=== PATIENT | female | born 1960 | race Caucasian/White ===

== ENCOUNTER 2017-03-01 14:29 | Emergency (ER) | payer SELFPAY ==
[~2017-03-01] VITALS: Ht 172.7 cm; Wt 117.9 kg
[2017-03-01] MEDS ORDERED: IV NORMAL SALINE 1000ML BAG 1,000 ML IV ONE (14:45)
[2017-03-01] MEDS ORDERED: MORPHINE SULFATE 10 MG/ML VIAL. IV ONE (14:45)
[2017-03-01] MEDS ORDERED: ONDANSETRON PF 4 MG/2 ML VIAL. IV ONE (14:45)
--- NOTE | 2017-03-01 14:49 | PHYS DOC ---
Adult General Chief Complaint Chief Complaint: ABDOMINAL PAIN HPI HPI Patient is a 56 year old female presenting to the emergency department for evaluation of abdominal pain and nausea that has been going on for at least several weeks. She went to The emergency department in [place] and says her primary complaint was not addressed and sent home with a Z-Darvin. She then saw her primary care provider and had labs drawn and was started on protonic's but she says this has not helped the pain. Is in her right upper quadrant and epigastrium and sharp and she feels nauseated all the time and has not been eating or drinking much and she says surprisingly that she has not lost weight. Patient says that she has had her gallbladder evaluated before and that it does have stones present. Patient denies any fevers chills dysuria hematuria diarrhea or constipation. She says that she has fibromyalgia and chronic Lyme' s disease. Review of Systems Review of Systems Constitutional: Denies fever or chills [] Eyes: Denies change in visual acuity, redness, or eye pain [] HENT: Denies nasal congestion or sore throat [] Respiratory: Denies cough or shortness of breath [] Cardiovascular: No additional information not addressed in HPI [] GI: + abdominal pain, nausea. No vomiting, bloody stools or diarrhea [] : Denies dysuria or hematuria [] Musculoskeletal: Denies back pain or joint pain [] Integument: Denies rash or skin lesions [] Neurologic: Denies headache, focal weakness or sensory changes [] Current Medications Current Medications Current Medications Medications (Trade) Dose Ordered Sig/Lazaro Start Time Stop Time Status Last Admin Dose Admin Fentanyl Citrate (Fentanyl 2ml Vial) 75 mcg 1X ONCE 03/01/17 15:15 03/01/17 15:16 DC 03/01/17 15:31 75 MCG Morphine Sulfate 5 mg 1X ONCE 03/01/17 14:45 03/01/17 15:04 DC Ondansetron HCl (Zofran) 8 mg 1X ONCE 03/01/17 14:45 03/01/17 14:54 DC 03/01/17 15:29 8 MG Sodium Chloride 1,000 ml @ 1,000 mls/hr 1X ONCE 03/01/17 14:45 03/01/17 15:44 DC 03/01/17 15:29 1,000 MLS/HR Allergies Allergies Allergies Coded Allergies Type Severity Reaction Last Updated Verified amoxicillin Allergy Intermediate 03/01/17 Yes ciprofloxacin Allergy Intermediate 03/01/17 Yes clavulanic acid Allergy Intermediate 03/01/17 Yes hydromorphone Allergy Intermediate 03/01/17 Yes morphine Allergy Intermediate 03/01/17 Yes nitrofurantoin Allergy Intermediate 03/01/17 Yes tetanus immune globulin Allergy Intermediate 03/01/17 Yes Physical Exam Physical Exam Constitutional: Well developed, well nourished, no acute distress, non-toxic appearance. [] HENT: Normocephalic, atraumatic, bilateral external ears normal, oropharynx moist, no oral exudates, nose normal. [] Eyes: PERRLA, EOMI, conjunctiva normal, no discharge. [] Neck: Normal range of motion, no tenderness, supple, no stridor. [] Cardiovascular:Heart rate regular rhythm, no murmur [] Lungs & Thorax: Bilateral breath sounds clear to auscultation [] Abdomen: Bowel sounds normal, soft, + RUQ and epigastric tenderness, no rebound or guarding, no masses, no pulsatile masses. [] Skin: Warm, dry, no erythema, no rash. [] Back: No tenderness, no CVA tenderness. [] Extremities: No tenderness, no cyanosis, no clubbing, ROM intact, no edema. [] Neurologic: Alert and oriented X 3, normal motor function, normal sensory function, no focal deficits noted. [] Current Patient Data Vital Signs Vital Signs Date Time Temp Pulse Resp B/P (MAP) Pulse Ox O2 Delivery O2 Flow Rate FiO2 03/01/17 16:30 64 14 167/56 (93) 99 Room Air 03/01/17 14:35 98.2 98.2 Lab Values Laboratory Tests Test 03/01/17 14:35 03/01/17 15:20 Urine Collection Type Void Urine Color Yellow Urine Clarity Clear Urine pH 7.5 Urine Specific [place] <=1.005 Urine Protein Negative mg/dL (NEG-TRACE) Urine Glucose (UA) Negative mg/dL (NEG) Urine Ketones (Stick) Negative mg/dL (NEG) Urine Blood Small (NEG) Urine Nitrite Negative (NEG) Urine Bilirubin Negative (NEG) Urine Urobilinogen Dipstick 0.2 mg/dL (0.2 mg/dL) Urine Leukocyte Esterase Negative (NEG) Urine RBC 6-10 /HPF (0-2) Urine WBC Rare /HPF (0-4) Urine Squamous Epithelial Cells Occ /LPF Urine Bacteria Few /HPF (0-FEW) Urine Opiates Screen Neg (NEG) Urine Methadone Screen Neg (NEG) Urine Barbiturates Neg (NEG) Urine Phencyclidine Screen Neg (NEG) Urine Amphetamine/Methamphetamine Neg (NEG) Urine Benzodiazepines Screen Neg (NEG) Urine Cocaine Screen Neg (NEG) Urine Cannabinoids Screen Neg (NEG) Urine Ethyl Alcohol Neg (NEG) White Blood Count 9.1 x10^3/uL (4.0-11.0) Red Blood Count 5.44 x10^6/uL (3.50-5.40) H Hemoglobin 14.9 g/dL (12.0-15.5) Hematocrit 44.9 % (36.0-47.0) Mean Corpuscular Volume 83 fL (79-100) Mean Corpuscular Hemoglobin 27 pg (25-35) Mean Corpuscular Hemoglobin Concent 33 g/dL (31-37) Red Cell Distribution Width 13.7 % (11.5-14.5) Platelet Count 293 x10^3/uL (140-400) Neutrophils (%) (Auto) 66 % (31-73) Lymphocytes (%) (Auto) 27 % (24-48) Monocytes (%) (Auto) 5 % (0-9) Eosinophils (%) (Auto) 1 % (0-3) Basophils (%) (Auto) 1 % (0-3) Neutrophils # (Auto) 6.0 x10^3uL (1.8-7.7) Lymphocytes # (Auto) 2.4 x10^3/uL (1.0-4.8) Monocytes # (Auto) 0.5 x10^3/uL (0.0-1.1) Eosinophils # (Auto) 0.1 x10^3/uL (0.0-0.7) Basophils # (Auto) 0.1 x10^3/uL (0.0-0.2) Prothrombin Time 13.4 SEC (11.7-14.0) Prothrombin Time INR 1.1 (0.8-1.1) PTT 27 SEC (24-38) Sodium Level 141 mmol/L (136-145) Potassium Level 3.8 mmol/L (3.5-5.1) Chloride Level 104 mmol/L (98-107) Carbon Dioxide Level 26 mmol/L (21-32) Anion Gap 11 (6-14) Blood Urea Nitrogen 11 mg/dL (7-20) Creatinine 0.9 mg/dL (0.6-1.0) Estimated GFR (Cockcroft-Gault) 65.0 BUN/Creatinine Ratio 12 (6-20) Glucose Level 117 mg/dL (70-99) H Calcium Level 10.1 mg/dL (8.5-10.1) Magnesium Level 2.1 mg/dL (1.8-2.4) Total Bilirubin 0.6 mg/dL (0.2-1.0) Aspartate Amino Transferase (AST) 14 U/L (15-37) L Alanine Aminotransferase (ALT) 23 U/L (14-59) Alkaline Phosphatase 97 U/L (46-116) Troponin I Quantitative < 0.017 ng/mL (0.000-0.055) YZ-Efr-Q-Type Natriuretic Peptide 54 pg/mL (0-124) Total Protein 8.3 g/dL (6.4-8.2) H Albumin 4.3 g/dL (3.4-5.0) Albumin/Globulin Ratio 1.1 (1.0-1.7) Lipase 85 U/L (73-393) Ethyl Alcohol Level < 10 mg/dL (0-10) Laboratory Tests 03/01/17 15:20 Laboratory Tests 03/01/17 15:20 EKG [address] by Dr. Welch [: Heart rate 72, sinus rhythm, normal intervals, normal axis, no acute ST/T-wave abnormalities present ] Radiology/Procedures Radiology/Procedures [facility] [address] [place] [address] IMAGING REPORT Signed PATIENT: ANTOINETTE ANDERSON ACCOUNT: [id number] : 1960 LOCATION: ER AGE: 56 SEX: F EXAM STATUS: REG ER ORD. PHYSICIAN: THAO WELCH MD REASON: right upper quadrant pain PROCEDURE: ABDOMEN LTD Right upper quadrant ultrasound, 03/01/2017: History: Right upper quadrant pain The gallbladder is within normal limits in size. There is no sonographic evidence of cholelithiasis. The gallbladder wall is not thickened. No bile duct dilatation is seen. The liver is at the upper limits of normal in size. There is no evidence of a hepatic mass. The pancreatic body is unremarkable. Other portions of the pancreas were obscured by overlying bowel. The visualized portions of the right kidney show no abnormality. IMPRESSION: No significant gallbladder abnormality is detected. DICTATED and SIGNED BY: OTF JOHNSON MD DATE: 03/01/17 1440 CC: RANDALL RIVAS; THAO WELCH MD ~ [] Course & Med Decision Making Course & Med Decision Making Patient with nonspecific abdominal pain and nausea. Will get labs treat symptoms and reassess. I will transfer care to Dr. Welch while awaiting workup. I took over care patient at 1500. On my evaluation, patient is complaining of long-standing abdominal pain that acutely worsened earlier today. The patient's complaints of pain are generalized, however she states that she has had sharp pains in her epigastric and right upper quadrant. Patient had an ultrasound completed which was negative and patient's lab work is unremarkable at this time. I suspect that the patient's symptoms may be within the GI tract and peptic ulcer disease versus chronic gastritis remains in the differential. The patient does not appear to have an acute life-threatening or acute surgical problem that is causing symptoms. The patient will be referred to Dr. Wang of gastroenterology for continued outpatient workup as to the cause of the patient's symptoms. Advised return to the emergency department for any worsening symptoms. Patient provided with prescriptions for Zofran and hydrocodone to help with symptoms and urged to continue on oral Protonix as previously prescribed. Patient voiced understanding and in agreement with treatment plan. Dragon Disclaimer Dragon Disclaimer This electronic medical record was generated, in whole or in part, using a voice recognition dictation system. Departure Departure Impression: Primary Impression: Abdominal pain Additional Impression: Nausea alone Disposition: 01 HOME, SELF-CARE Condition: IMPROVED Referrals: SUSAN WANG MD Patient Instructions: Abdominal Pain (Nonspecific), Nausea, Adult Additional Instructions: Follow-up with Dr. Wang in one week for reevaluation. Return to the emergency department for any worsening symptoms. Scripts Ondansetron (ZOFRAN ODT) 4 Mg Tab.rapdis 1 TAB SL Q8HRS Y for NAUSEA/VOMITING, #15 TAB Prov: FOLAND,THAO J MD 03/01/17 Hydrocodone/Apap 5-325 (NORCO 5-325 TABLET) 1 Each Tablet 0.5-1 TAB PO Q4-6HRS Y for PAIN, #20 TAB Prov: THAO WELCH MD 03/01/17 Problem Qualifiers Primary Impression: Abdominal pain Abdominal location: epigastric Qualified Codes: R10.13 - Epigastric pain AYDIN FIGUEROA DO Mar 01, 2017 14:49 THAO WELCH MD Mar 01, 2017 16:53
[2017-03-01 15:01] LABS: BILIRUBIN,URINE NEGATIVE (NEG); GLUCOSE,URINE NEGATIVE (NEG); NITRITE,URINE NEGATIVE (NEG); PH,URINE 7.5; PROTEIN,URINE NEGATIVE (NEG-TRACE); UROBILINOGEN,URINE 0.2 mg/dL (0.2 mg/dL)
[2017-03-01 15:09] LABS: BARBITURATES NEG (NEG); BENZODIAZEPINES NEG (NEG); CANNABINOIDS NEG (NEG); COCAINE NEG (NEG); METHADONE NEG (NEG); OPIATES NEG (NEG); PHENCYCLIDINE NEG (NEG)
[2017-03-01 15:14] LABS: BACTERIA,URINE FEW /HPF (0-FEW); SQUAMOUS EPITHELIAL CELL,UR OCC /LPF; WBC,URINE RARE /HPF (0-4)
[2017-03-01] MEDS ORDERED: fentaNYL PF VIAL 100 MCG/2 ML VIAL IV ONE (15:15)
--- NOTE | 2017-03-01 15:15 | EKG ---
[facility] [address] [place] [address] Test Date: 2017-03-01 Test Time: 15:03:54 Pat Name: ANTOINETTE ANDERSON Department: Room: Gender: Female [employer] Operator: : 1960 Requested By: AYDIN FIGUEROA Order Number: [id number] Reading MD: Scott Castillo Measurements Intervals [place] Rate: 72 P: 46 MI: 142 QRS: 4 QRSD: 88 T: 12 QT: 394 QTc: 433 Interpretive Statements SINUS RHYTHM INCOMPLETE RIGHT BUNDLE BRANCH BLOCK OTHERWISE NORMAL ECG RI6.01 Unconfirmed report No previous ECG available for comparison Electronically Signed On 03-01-2017 16:53:44 CDT by Scott Castillo
[2017-03-01 15:29] LABS: BASO # 0.1 x10^3/uL (0.0-0.2); BASO % 1 % (0-3); EOS % 1 % (0-3); HEMATOCRIT 44.9 % (36.0-47.0); HEMOGLOBIN 14.9 g/dL (12.0-15.5); LYMPH # 2.4 x10^3/uL (1.0-4.8); LYMPH % 27 % (24-48); MEAN CORPUSCULAR HEMOGLOBIN 27 pg (25-35); MEAN CORPUSCULAR HGB CONC 33 g/dL (31-37); MEAN CORPUSCULAR VOLUME 83 fL (79-100); MONO % 5 % (0-9); NEUT % 66 % (31-73); PLATELET COUNT 293 x10^3/uL (140-400); RED BLOOD COUNT 5.44 x10^6/uL (3.50-5.40); RED CELL DISTRIBUTION WIDTH 13.7 % (11.5-14.5); WHITE BLOOD COUNT 9.1 x10^3/uL (4.0-11.0)
[2017-03-01 15:36] LABS: INR 1.1 (0.8-1.1); PROTHROMBIN TIME PATIENT 13.4 SEC (11.7-14.0)
[2017-03-01 15:44] LABS: CALCIUM 10.1 mg/dL (8.5-10.1); CREATININE 0.9 mg/dL (0.6-1.0); POTASSIUM 3.8 mmol/L (3.5-5.1)
[2017-03-01 15:50] LABS: ALBUMIN 4.3 g/dL (3.4-5.0); ALBUMIN/GLOBULIN RATIO 1.1 (1.0-1.7); MAGNESIUM 2.1 mg/dL (1.8-2.4); TOTAL BILIRUBIN 0.6 mg/dL (0.2-1.0); TOTAL PROTEIN 8.3 g/dL (6.4-8.2)
[2017-03-01 16:30] VITALS: BP 167/56
--- NOTE | 2017-03-01 16:44 | RAD ---
Right upper quadrant ultrasound, 03/01/2017: History: Right upper quadrant pain The gallbladder is within normal limits in size. There is no sonographic evidence of cholelithiasis. The gallbladder wall is not thickened. No bile duct dilatation is seen. The liver is at the upper limits of normal in size. There is no evidence of a hepatic mass. The pancreatic body is unremarkable. Other portions of the pancreas were obscured by overlying bowel. The visualized portions of the right kidney show no abnormality. IMPRESSION: No significant gallbladder abnormality is detected.
[2017-03-01] MEDS ORDERED: HYDR-971 PO (17:08)
[2017-03-01] MEDS ORDERED: ONDA4TAB10 SL (17:08)
== END 2017-03-01 17:24 | disposition home or self-care (01) ==
LOC: ER 14:29
DX: R10.11 Right upper quadrant pain (principal); R10.13 Epigastric pain; R11.0 Nausea; M79.7 Fibromyalgia; Z88.1 Allergy status to other antibiotic agents; Z88.5 Allergy status to narcotic agent; Z88.8 Allergy status to other drugs, medicaments and biological substances; Z88.7 Allergy status to serum and vaccine
CPT/HCPCS: 36415; 76705; 80053; 80307; 81001; 83690; 83735; 83880; 84484; 85027; 85610; 85730; 93005; 96361; 96374; 96375; 99285; C1887; G0480; J2405; J3010; J7030; G0479